=== PATIENT | male | born 1955 | race Caucasian/White ===

== ENCOUNTER 2018-05-20 15:28 | Observation (INO) ==
[2018-05-20] MEDS ORDERED: *HR* Promethazine 25 MG/ML VIAL IVP PRN (15:32)
[2018-05-20] MEDS ORDERED: OXYCODONE Oral CONC 10 MG/0.5 ML ORAL.SYG SL PRN (15:32)
[2018-05-20] MEDS ORDERED: Naloxone 0.4 MG/ML INJ IVP PRN (15:32)
[2018-05-20] MEDS ORDERED: *HR* Belladonna Alkaloids/Opium 30 MG RECTAL SUPPOSITORY RC PRN (15:32)
[2018-05-20] MEDS ORDERED: Ondansetron 4 MG/2 ML VIAL IVP PRN (15:32)
--- NOTE | 2018-05-20 15:42 | Urology History & Physical ---
Date of Encounter: 05/21/18 Time of Encounter: 15:40 Assessment and Plan (1) Ureteral stone with hydronephrosis Current Visit: No Status: Acute distal 9 mm ureteral stone with hydronephrosis. In light of his poor renal function need to proceed with stone extraction with holmium laser and JJ stent placement. will leave JJ stent until renal function improves. procedure discussed including risks - UTI, injury to urinary tract, stricture, stent complications, (2) Acute renal insufficiency Current Visit: No Status: Acute hydration, JJ stent and avoid nephrotoxins. will recheck after the surgery before discharge. History of Present Illness Chief complaint: flank pain HPI: Mr. Moe is a 62 year old male with flank pain and acute renal insufficiency. direct admit bc of pain and low GFR. plan to proceed with stone extraction and stent. no fever. pt has been on cipro and motrin. 1. Mild to moderate right hydronephrosis secondary to a 9 mm stone in the distal ureter. 2. Bilateral intrarenal calculi. 3. Hepatomegaly with mild steatosis. 4. Colonic diverticulosis without evidence for acute diverticulitis. 5. Several left lower lobe nodules measuring up to 4 mm were not within the field of view on prior CTs. Please see follow-up guidelines below. The findings were sent to the [facility]iology [facility] at 3:21 pm on 05/20/2018 to be communicated to a licensed caregiver. Past Med Surg Social Fam HX - Past Medical History Medical history: hypertension Psychiatric history: no psych history - Social History Smoking Status: Current every day smoker Smokeless Tobacco Status: No Alcohol use: rarely Drug use: none Medications and Allergies Losartan 50 mg DAILY 05/20/18 [History] 3 Allergy/AdvReac Type Severity Reaction Status Date / Time No Known Allergies Allergy Verified 12/28/17 16:50 Review of Systems - Constitutional no chills, no fever(s) - EENT Nose, mouth and throat: no dizziness - Cardiovascular no chest pain - Respiratory no cough - Gastrointestinal abdominal pain, nausea - Genitourinary flank pain - Musculoskeletal back pain - Integumentary no lesions - Neurological no confusion - Psychiatric no anxiety - Hematologic/Lymphatic no easy bleeding - Allergic/Immunologic no throat swelling Exam - General physical appearance Present: well developed, no distress - Eyes Present: PERRL - ENT Present: normal nares - Neck Present: no masses - Respiratory Present: normal respiratory effort - Cardiovascular Cardiovascular exam IM: RRR - Abdomen Abdomen: Present: soft. Absent: masses, distended - Integumentary Absent: no rash - Neurologic Present: normal coordination. Absent: disoriented, confused - Musculoskeletal Present: normal gait - Additional Findings mild CVA tenderness Urology Results - Labs All other labs normal.
[2018-05-20] MEDS ORDERED: Acetaminophen IV 1,000 MG/100 ML INFUS..BTL IVPB ONE (21:39)
[2018-05-20] MEDS: 0.9 % Sodium Chloride 1,000 ML IVC SCH ×2 (22:42→22:43)
[2018-05-20] MEDS: *HR* HYDROmorphone 2 MG/ML SYRINGE IVP PRN (23:21)
[2018-05-21] MEDS: OXYCODONE Oral CONC 10 MG/0.5 ML ORAL.SYG SL PRN ×2 (00:38→04:48)
[2018-05-21] MEDS: *HR* HYDROmorphone 2 MG/ML SYRINGE IVP PRN ×4 (02:28→13:26)
[2018-05-21] MEDS ORDERED: cefTRIAXone 1,000 MG in Water for inj. (sterile) 20 ML 10 ML IVP SCH (06:00)
[2018-05-21] MEDS ORDERED: Ondansetron 4 MG/2 ML VIAL IVP ONE (07:07)
[2018-05-21] MEDS ORDERED: *HR* Promethazine 25 MG/ML VIAL IVP PRN (07:07)
[2018-05-21] MEDS ORDERED: Dexamethasone 4 MG/ML VIAL IVP ONE (07:07)
[2018-05-21] MEDS ORDERED: *HR* HYDROmorphone (PF) 1 MG/ML SYRINGE IVP PRN (07:07)
--- NOTE | 2018-05-21 07:13 | Anesthesia Evaluation PreOp ---
Date of Encounter: 05/21/18 Time of Encounter: 07:11 - Past History Planned Operation: Right Ureteroscopy With Stone Extraction Cardiac History: HTN Pulmonary History: Smoker (20+ years) [employer]IST History: Denies Any Significant HX Other Medical History: Renal (acute renal insufficiency, kidney stones) Anesthesia History: Past Anesthesia (no prior surgery) Alcohol Use: rarely Drug use: none Medications and Allergies Losartan 50 mg DAILY 05/20/18 [History] 3 Allergy/AdvReac Type Severity Reaction Status Date / Time No Known Allergies Allergy Verified 12/28/17 16:50 - Meds/Allergy Pre-op Review Medications Reviewed: Yes Allergies Reviewed: Yes Beta Blockers on Current Med List: No Anesthesia Results - Labs Laboratory Tests 05/20/18 12:15 Creatinine 2.67 H - Imaging EKG: report reviewed (12/28/2017 SINUS RHYTHM WITH OCCASIONAL SUPRAVENTRICULAR PREMATURE COMPLEXES) Anesthesia Exam Vital Signs/O2 Sat/Glucose, Most Recent Temp Pulse Resp BP Pulse Ox 97.6 F 83 15 181/102 91 05/21/18 03:00 05/21/18 03:00 05/21/18 03:00 05/21/18 03:00 05/21/18 03:00 Blood Glucose* 96 Height: 5'10"/1.78 m Weight: 220 lbs/100 kg NPO (# of Hours): 8 Pain Scale: 0 Pain Scale Used: Numeric (1 - 10) - HEENT Pupil (Motor): EOMI Mallampati: III Teeth: Normal Oral Opening: Greater than 3 - 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
[2018-05-21] MEDS ORDERED: Isovue-300 50 ML VIAL IVP ONE (07:18)
[2018-05-21] MEDS ORDERED: Lidocaine -MPF 2% 2 ML VIAL ONE (07:18)
[2018-05-21] MEDS ORDERED: Dexamethasone 4 MG/ML VIAL ONE (07:18)
[2018-05-21] MEDS ORDERED: Ondansetron 4 MG/2 ML VIAL ONE (07:18)
[2018-05-21] MEDS ORDERED: *HR* Midazolam HCl 2 MG/2 ML VIAL ONE (07:18)
[2018-05-21] MEDS ORDERED: *HR* FentaNYL (PF) 100 MCG/2 ML VIAL ONE (07:19)
[2018-05-21] MEDS ORDERED: *HR* Propofol 200 MG/20 ML VIAL IVP ONE (07:19)
[2018-05-21] MEDS: *HR* Labetalol 20 MG/4 ML SYRINGE IVP PRN ×3 (09:06→09:19)
--- NOTE | 2018-05-21 09:18 | Operative Note ---
Date of procedure: 05/21/18 Pre-op diagnosis: right 9 mm distal ureteral stone Post-op diagnosis: same Procedure: right ureteroscopic stone extraction with holmium laser right JJ stent. Anesthesia: GETA Surgeon: Ramon Epps Was there an boiler assistant operator present: No Estimated blood loss (cc): 0 Specimen: stone fragments Condition: stable Disposition: PACU Procedure in Detail: PROCEDURE IN DETAIL: Patient was taken back to the operating room, positioned supine on the operating table. Anesthesia was applied without complication. They were moved into dorsal lithotomy. Careful attention was maintained to cushion all pressure points for patient's safety. They were prepped and draped in sterile fashion. Time-out was performed with the proper patient and procedure. A 21-Mexican rigid cystoscope was inserted into the bladder without difficulty. Systematic examination of bladder revealed no abnormalities. The right ureteral orifice was cannulated using a 5-Mexican ureteral Catheter and a zip wire was placed through the 5-Mexican and confirmed in the renal pelvis with fluoroscopy. An 8-10 dilator was then placed over the zip wire to passively dilate the ureteral orifice. A semi-rigid ureteroscope was carefully inserted into the bladder and guided into the ureteral oriface. There was significant mucosal edema just distal to the stone but I was able to manipulate the scope past this area. At that point, the stone was encountered and I felt that it required fragmentation for safe extraction. A 200 micron holmium laser fiber on a setting of 8 and 800 was used to fragment the stone into multiple pieces. The fragments were individually basketed out of the ureter with a 1.9 tipless basket. All stone in the ureter was removed. A 4.8 x 26 ureteral stent was placed over the zip wire under fluoroscopy without complication. The bladder was drained along with the stone fragments. They were collected and sent for stone analysis. No string was left attached to the stent.
--- NOTE | 2018-05-21 09:21 | Discharge Summary ---
Orders not resulted at time of discharge: Pending orders 05/20/18 15:36 ECG 12 lead ECG [ECG] Routine 05/21/18 08:38 Surgical Pathology [PTH] Routine Date of Encounter: 05/21/18 Time of Encounter: 09:22 - Discharge Diagnosis (1) Ureteral stone with hydronephrosis Priority: Primary Status: Resolved (2) Acute renal insufficiency Priority: Secondary Status: Acute - Hospital Course Hospital course: Mr. Moe is a 62 year old male admitted with a 9 mm distal right ureteral stone. Significant pain. Acute renal insufficiency. Status post successful stone extraction and stent placement. Plan to recheck renal function to verify it has improved prior to discharge - Time Spent with Patient Total time spent providing and/or coordinating discharge services: Less than 30 minutes Labs on day of discharge: Labs from last 24 hours 05/21/18 05:34 POC Glucose 96 - Impressions ITS Impressions Chest X-Ray 05/20/18 15:37 IMPRESSION: No acute process. D/ / Romero Montanez MD / Romero Montanez MD Interpreting Provider: Romero Montanez MD Fluoroscopy 05/21/18 00:00 IMPRESSION: Intraprocedural fluoroscopic spot images as above. See separate procedure report for more information. D/ / Doni Garza MD / Doni Garza MD Interpreting Provider: Doni Garza MD X-Ray 05/21/18 00:00 IMPRESSION: Intraprocedural fluoroscopic spot images as above. See separate procedure report for more information. D/ / Doni Garza MD / Doni Garza MD Interpreting Provider: Doni Garza MD - Discharge Medications Prescriptions: HYDROcodone/Acet 5/325 mg [[place] 5-325 mg] 1 tab PO Q4H PRN 5 Days #10 tab PRN Reason: Pain Home Medications: Losartan 50 mg DAILY 05/20/18 [History] HYDROcodone/Acet 5/325 mg [[place] 5-325 mg] 1 tab PO Q4H PRN 5 Days #10 tab 05/21 [Rx] Allergies/Adverse Reactions: 3 Allergy/AdvReac Type Severity Reaction Status Date / Time No Known Allergies Allergy Verified 12/28/17 16:50 Date of admission: 05/20/18 20:32 Primary care physician: Magaly Schulte Discharging clinician: Ramon Epps Anticipated date of discharge: 05/28/18 Exam Initial Vital Signs Temp Pulse Resp BP Pulse Ox 99.2 F 78 14 189/118 97 05/20/18 20:43 05/20/18 20:43 05/20/18 20:43 05/20/18 20:43 05/20/18 20:43 - General physical appearance Present: well developed, no distress - Patient Status Disposition: Home, Self-Care Condition: Good Overall status at discharge: patient is progressing back to baseline - Discharge Instructions Follow Up With: Lindsay Philip DO [Primary Care Provider] - Jhonny Calhoun MD [Family Provider] - Ramon Epps MD [Partnered Physician] - (My office will arrange follow- up for the patient which will include cystoscopy and stent removal) Additional Instructions: Expect stent discomfort including urgency, frequency, burning on urination, blood in the urine. This will last the entire time the stent is in place There are no activity restrictions. Drink plenty of water. Avoid all NSAIDs. Tylenol is okay for pain. - Diet and Activity Activity: increase activity as tolerated Diet: advance to your usual diet - VTE Documentation of Mechanical Device: Intermittent pneumatic compression device
--- NOTE | 2018-05-21 09:22 | Anesthesia Evaluation Post Op ---
Date of Encounter: 05/21/18 Time of Encounter: 09:21 - Vital Signs Vital Signs: Vital Signs/O2 Sat/Glucose, Most Recent Temp Pulse Resp BP Pulse Ox 97.3 F L 82 16 174/109 93 05/21/18 09:15 05/21/18 09:15 05/21/18 09:15 05/21/18 09:15 05/21/18 09:15 Blood Glucose* 96 - Lungs Lungs: Clear Ascult./Percussion - Airway Airway: Non-obstructed - Cardiovascular Regular Rate, Baseline Rhythm - Mental Status Mental Status: Alert & Oriented, Answers Appropriately - Pain Pain Scale: 0 Pain Scale used: Numeric (1 - 10) - Nausea Vomiting Nausea Vomiting: Not Present - Hydration Hydration: Tolerates oral liquids, Ice chips Notes: 05/21/18 09:22 naac - Discharge PostOp Status: Transfer Patient to floor
[2018-05-21 09:27] VITALS: BP 154/101
[2018-05-21 12:58] LABS: Calcium 9.7 mg/dL (8.6-10.3); Potassium 4.9 mEq/L (3.5-5.1)
[2018-05-24 10:19] LABS: Calculi Mass 87 mg
--- NOTE | 2018-05-25 17:36 | Electrocardiograph Report ---
[address] [place] [address] Test Date: 2018-05-21 Pat Name: Parish Moe Department: 115 Room: 3A45 Gender: M [employer] Finisher: : 1955 Requested By: Ramon Epps Order Number: [id number] Reading MD: Juli Vila Measurements Intervals [place] Rate: 87 P: 63 WY: 174 QRS: 25 QRSD: 86 T: 29 QT: 363 QTc: 408 Interpretive Statements SINUS RHYTHM Electronically Signed On 05-25-2018 17:34:28 EDT by Juli Vila
== END 2018-05-21 14:49 | disposition home or self-care (01) ==
LOC: 3ANU 20:32 → INTOOBSV 20:32
PROVIDERS: ADMIT Urology; ATTEND Urology